=== PATIENT | male | born 1995 | race Two or more races ===

== ENCOUNTER 2018-07-05 13:31 | Emergency (ER) | payer SELFPAY ==
--- NOTE | 2018-07-05 15:09 | ED PDOC ---
HPI: Psych/Substance Abuse Time Seen by Provider: 07/05/18 13:52 Chief Complaint (Nursing): Psychiatric Evaluation Chief Complaint (Provider): Psych eval History Per: Patient History/Exam Limitations: no limitations Onset/Duration Of Symptoms: Days (months) Current Symptoms Are (Timing): Still Present Associated Symptoms: denies: Suicidal Thoughts, Suicidal Plan, Other (Homicidal ideation) Additional Complaint(s): Wiley Wolf is a 23 year old male, with a past medical history of asthma, who presents to the emergency department reporting ever since tripping on acid in January, he keeps going to this dark place where he feels he dies. However, he keeps revisiting this place now especially in his dreams. Patient denies any suicidal or homicidal ideation. No further medical complaints. PMD: None provided Past Medical History Reviewed: Historical Data, Nursing Documentation, Vital Signs Vital Signs: Last Vital Signs Temp 98.7 F 07/05/18 13:40 Pulse 110 H 07/05/18 13:40 Resp 17 07/05/18 13:40 BP 118/70 07/05/18 13:40 Pulse Ox 98 07/05/18 13:40 - Medical History PMH: Asthma - Surgical History Surgical History: Tonsillectomy - Family History Family History: States: Unknown Family Hx - Allergies Allergies/Adverse Reactions: Allergies Allergy/AdvReac Type Severity Reaction Status Date / Time amoxicillin Allergy RASH Verified 07/05/18 13:42 Review of Systems ROS Statement: Except As Marked, All Systems Reviewed And Found Negative Psych: Positive for: Other (visual hallucinations). Negative for: Suicidal ideation (or Homicidal ideation) Physical Exam - Reviewed Nursing Documentation Reviewed: Yes Vital Signs Reviewed: Yes - Physical Exam Appears: Positive for: No Acute Distress Head Exam: Positive for: ATRAUMATIC, NORMAL INSPECTION, NORMOCEPHALIC Skin: Positive for: Normal Color, Warm, Dry Eye Exam: Positive for: Normal appearance, EOMI, PERRL Neck: Positive for: Painless ROM Cardiovascular/Chest: Positive for: Regular Rate, Rhythm. Negative for: Murmur Respiratory: Positive for: Normal Breath Sounds. Negative for: Respiratory Distress Gastrointestinal/Abdominal: Positive for: Normal Exam, Soft. Negative for: Tenderness Extremity: Positive for: Normal ROM (upper and lower extremities). Negative for : Deformity Neurologic/Psych: Positive for: Alert, Oriented. Negative for: Motor/Sensory Deficits - ECG O2 Sat by Pulse Oximetry: 98 (RA) Pulse Ox Interpretation: Normal Medical Decision Making Medical Decision Making: Time: 13:52 Initial Impression: Psychiatric evaluation Initial Plan: --reevaluation Pt underwent crisis eval, see notes Scribe Attestation: Documented by Ricardo Bender acting as a scribe for Jesi Dominique PA-C. MD Scribe Attestation: All medical record entries made by the Scribe were at my direction and personally dictated by me. I have reviewed the chart and agree that the record accurately reflects my personal performance of the history, physical exam, medical decision making, and the department course for this patient. I have also personally directed, reviewed, and agree with the discharge instructions and disposition. Disposition - Clinical Impression Clinical Impression: Unspecified schizophrenia, unspecified condition - Patient ED Disposition Is Patient to be Admitted: No - Disposition Disposition: Routine/Home Disposition Time: 15:53 Condition: STABLE Instructions: Schizophrenia (DC) Forms: BPT (Dutch)
[2018-07-05 15:55] VITALS: BP 125/80; PULSE 75; RESP 16; TEMP 98.1; O2SAT 99
== END 2018-07-05 15:54 | disposition home or self-care (01) ==
LOC: H.ER 13:31
DX: F20.9 Schizophrenia, unspecified (principal)